=== PATIENT | female | born 1980 | race Hispanic/Latino ===

== ENCOUNTER 2022-05-10 07:22 | Observation (INO) | payer OTHER ==
--- OUTSIDE RECORDS SUMMARY | 2022-05-10 07:30 | XMS REPORT | Continuity of Care Document ---
:1980 Author Organization [facility] t Address [address] [facility] [address] [place] [id number] Care Team Providers Name Role Phone Purnima RUBALCAVA, [facility] Primary Care Physician [phone] Problems This patient has no known problems. Allergies, Adverse Reactions, Alerts This patient has no known allergies or adverse reactions. Medications Ordered Filled Start Stop Current Ordering Indication Dosage Frequency Signature Comments Components Source Medication Medication Date Date Medication? Clinician (SIG) Name Name TAKE 2021-02 No TABLET 2-27 DAILY. 00:00: 00 TAKE 1 2021-02 No TABLET ONCE 2-19 DAILY. 00:00: 00 Vital Signs Vital Name Observation Time Observation Value Comments Source BP Systolic 2022-02-19 09:31:00 191 mm[Hg] BP Diastolic 2022-02-19 09:31:00 129 mm[Hg] Weight Measured 2022-02-19 09:31:00 282.00 pounds Height Measured 2022-02-19 09:31:00 65.00 inches Body Temperature 2022-02-19 09:31:00 98.40 degrees Heart Rate 2022-02-19 09:31:00 89.00 /min Respiratory Rate 2022-02-19 09:31:00 20.00 /min BP Systolic 2022-02-11 16:05:00 206 mm[Hg] BP Diastolic 2022-02-11 16:05:00 124 mm[Hg] Weight Measured 2022-02-11 16:05:00 279.20 pounds Height Measured 2022-02-11 16:05:00 65.00 inches Body Temperature 2022-02-11 16:05:00 97.60 degrees Heart Rate 2022-02-11 16:05:00 88.00 /min Respiratory Rate 2022-02-11 16:05:00 18.00 /min BP Systolic 2022-02-03 09:00:00 212 mm[Hg] BP Diastolic 2022-02-03 09:00:00 142 mm[Hg] Weight Measured 2022-02-03 09:00:00 283.00 pounds Height Measured 2022-02-03 09:00:00 65.00 inches Body Temperature 2022-02-03 09:00:00 98.60 degrees Heart Rate 2022-02-03 09:00:00 83.00 /min Respiratory Rate 2022-02-03 09:00:00 18.00 /min Procedures This patient has no known procedures. Plan of Care Planned Activity Planned Date Details Comments Source Goal Plan of Care Note [code = 21759-9] Goal Plan of Care Note [code = 79784-3] Goal Plan of Care Note [code = 10442-1] Goal Plan of Care Note [code = 83818-0] Goal Plan of Care Note [code = 82982-9] Goal Plan of Care Note [code = 48418-8] Goal Plan of Care Note [code = 16986-5] Goal Plan of Care Note [code = 19329-3] Encounters Start End Encounter Admission Attending Care Care Encounter Source Date/Time Date/Time Type Type Clinicians Facility Department ID 2022-03-27 2022-03-27 Outpatient [facility] [id number] [place] 14:32:57 14:32:57 [id number] F [place] 2022-02-27 2022-02-27 Outpatient [facility] [id number] [place] 14:37:06 14:37:06 [id number] F [place] 2022-02-19 2022-02-19 Outpatient [facility] [id number] [place] 09:22:21 09:22:21 [id number] F [place] 2022-02-19 2022-02-19 Outpatient [id number] 00:00:00 00:00:00 Visit [id number] Results Test Description Test Time Test Comments Results Result Comments Source [facility], THIRD GENERATION 2022-02-04 06:22:53 Test Item Value Reference Range Interpretation Comme nts TSH, THIRD GENERATION (test code = 2821) 4.580 UIU/ML 0.400-4.100 H COMPREHENSIVE METABOLIC [id number] 03:59:34 Test Item Value Reference Range Interpretation Comments GLUCOSE (test code = 100 MG/DL 70-99 H 2216) BUN (test code = 8 MG/DL 6-20 2207) CREATININE (test 0.58 MG/DL 0.60-1.30 L code = 2214) eGFR (2020 CKD-EPI) 118 >60 (test code = 33159) ML/MIN/1.73 CALC BUN/CREAT (test 14 RATIO 6-28 code = 2235) SODIUM (test code = 140 MEQ/L 862-043 5968) POTASSIUM (test code 4.2 MEQ/L 3.5-5.4 = 2227) CHLORIDE (test code 104 MEQ/L 95-107 = 2214) CARBON DIOXIDE (test 26 MEQ/L 19-31 code = 220) CALCIUM (test code = 9.1 MG/DL 8.5-10.5 2208) PROTEIN, TOTAL (test 7.4 G/DL 6.1-8.3 code = 222) ALBUMIN (test code = 4.3 G/DL 3.5-5.2 2200) CALC GLOBULIN (test 3.1 G/DL 1.9-3.7 code = 2240) CALC A/G RATIO (test 1.4 RATIO 1.0-2.6 code = 2234) BILIRUBIN, TOTAL 0.4 MG/DL See_Comment [Automated message] (test code = 220) The syste m which generated this result transmit eulalia reference range : <=1.2. The refe rence range was not u sed to interpret th is result as normal/abnormal . ALKALINE PHOSPHATASE 106 U/L 40-112 (test code = 2204) AST (test code = 23 U/L 9-40 2217) ALT (test code = 28 U/L 5-40 2218) LIPID [id number] 03:59:34 Test Item Value Reference Range Interpretation Comments CHOLESTEROL (test 153 MG/DL <200 code = 2210) TRIGLYCERIDES (test 156 MG/DL <150 H code = 2232) HDL CHOLESTEROL (test 54 MG/DL >39 code = 2220) CALC LDL CHOL (test 76 MG/DL <100 NOTE: C ALCULATED LDL code = 2237) IS BASED ON STEFANIE-ASENCIO METHOD WHICHINCLUDES ADJUSTABLE TRIGLYCERIDE:VL DL CHOLESTEROL RAT IO.THIS FACTOR VARIES B Y MEASURED TRIGLY CERIDE AND NON-HDLCHOL ESTEROL CONCENTRATIONS WITH INCREASED CALCU LATED LDL SEENIN HIGH ER TRIGLYCERIDE OR LOWER NON-HDL SPECIME NS. FOR MOREINFORMATION , SEE CLIENT ANNOUNCE MENT AT [email or web address] RISK RATIO LDL/HDL 1.41 RATIO <3.22 (test code = 2238) HEMOGLOBIN [id number] 02:35:03 Test Item Value Reference Range Interpretation Comments HEMOGLOBIN A1c (test 6.1 % 4.2-5.6 H UNLESS OTHERWISE code = 86685) INDICATED, ALL TESTING PERFORMED [facility] [employer]. [address] [place] [id number] [place] [address] DIRECTOR: OLI CARDONA M.D. CLIA NUMBER [id number] CAP ACCREDITATION N O. [id number] CBC W/AUTO DIFF WITH [id number] 02:15:17 Test Item Value Reference Range Interpretation Comments WBC (test code = 6.7 K/UL 3.5-11.0 1001) RBC (test code = 5.66 M/UL 3.80-5.40 H 1002) HEMOGLOBIN (test code 12.0 G/DL 11.5-15.5 = 1003) HEMATOCRIT (test code 41.2 % 34.0-45.0 = 1004) MCV (test code = 72.8 fL 80.0-99.0 L 1005) MCH (test code = 21.2 PG 25.0-33.0 L 1006) MCHC (test code = 29.1 G/DL 31.0-36.0 L 1007) RDW (test code = 18.3 % 11.5-15.0 H 1038) NEUTROPHILS (test 60.6 % code = 1008) LYMPHOCYTES (test 26.3 % code = 1010) MONOCYTES (test code 9.9 % = 1011) EOSINOPHILS (test 2.5 % code = 1012) BASOPHILS (test code 0.3 % = 1013) IMMATURE GRANULOCYTES 0.4 % (test code = 1036) NUCLEATED RBCS (test 0.0 /100 WBC'S See_Comment [Aut omated code = 1065) message] The sy stem which generated this result transmitted reference range : 0.0. The refere nce range was not u sed to interpret th is result as normal/abnormal . PLATELET COUNT (test 357 K/UL 130-400 code = 1015) ABSOLUTE NEUTROPHILS 4.08 K/UL 1.50-7.50 (test code = 1066) ABSOLUTE LYMPHOCYTES 1.77 K/UL 1.00-4.00 (test code = 1067) ABSOLUTE MONOCYTES 0.67 K/UL 0.20-1.00 (test code = 1068) ABSOLUTE EOSINOPHILS 0.17 K/UL 0.00-0.50 (test code = 1040) ABSOLUTE BASOPHILS 0.02 K/UL 0.00-0.20 (test code = 1069) ABS IMMATURE 0.03 K/UL 0.00-0.10 GRANULOCYTES (test code = 1020) ABS NUCLEATED RBCS 0.00 K/UL 0.00-0.11 (test code = 15706) LIPID [id number] 00:00:00 Test Item Value Reference Range Interpretation Comments CHOLESTEROL (test code = 2210) 153 MG/DL TRIGLYCERIDES (test code = 2232) 156 MG/DL HDL CHOLESTEROL (test code = 2220) 54 MG/DL CALC LDL CHOL (test code = 2237) 76 MG/DL RISK RATIO LDL/HDL (test code = 1.41 RATIO 2238) LIPID [id number] 00:00:00 Test Item Value Reference Range Interpretation Comments CHOLESTEROL (test code = 2210) 153 MG/DL TRIGLYCERIDES (test code = 2232) 156 MG/DL HDL CHOLESTEROL (test code = 2220) 54 MG/DL CALC LDL CHOL (test code = 2237) 76 MG/DL RISK RATIO LDL/HDL (test code = 1.41 RATIO 2238) TSH, THIRD [id number] 00:00:00 Test Item Value Reference Range Interpretation Comments TSH, THIRD GENERATION (test code 4.580 UIU/ML = 2821) TSH, THIRD [id number] 00:00:00 Test Item Value Reference Range Interpretation Comments TSH, THIRD GENERATION (test code 4.580 UIU/ML = 2821) TSH, THIRD [id number] 00:00:00 Test Item Value Reference Range Interpretation Comments TSH, THIRD GENERATION (test code 4.580 UIU/ML = 2821) HEMOGLOBIN [id number] 00:00:00 Test Item Value Reference Range Interpretation Comments HEMOGLOBIN A1c (test code = 11201) 6.1 % HEMOGLOBIN [id number] 00:00:00 Test Item Value Reference Range Interpretation Comments HEMOGLOBIN A1c (test code = 63736) 6.1 % HEMOGLOBIN [id number] 00:00:00 Test Item Value Reference Range Interpretation Comments HEMOGLOBIN A1c (test code = 43789) 6.1 % CBC W/AUTO [id number] 00:00:00 Test Item Value Reference Range Interpretation Comments WBC (test code = 1001) 6.7 K/UL RBC (test code = 1002) 5.66 M/UL HEMOGLOBIN (test code = 1003) 12.0 G/DL HEMATOCRIT (test code = 1004) 41.2 % MCV (test code = 1005) 72.8 fL MCH (test code = 1006) 21.2 PG MCHC (test code = 1007) 29.1 G/DL RDW (test code = 1038) 18.3 % NEUTROPHILS (test code = 1008) 60.6 % LYMPHOCYTES (test code = 1010) 26.3 % MONOCYTES (test code = 1011) 9.9 % EOSINOPHILS (test code = 1012) 2.5 % BASOPHILS (test code = 1013) 0.3 % IMMATURE GRANULOCYTES (test 0.4 % code = 1036) NUCLEATED RBCS (test code = 0.0 /100WBC'S 1065) PLATELET COUNT (test code = 357 K/UL 1015) ABSOLUTE NEUTROPHILS (test code 4.08 K/UL = 1066) ABSOLUTE LYMPHOCYTES (test code 1.77 K/UL = 1067) ABSOLUTE MONOCYTES (test code = 0.67 K/UL 1068) ABSOLUTE EOSINOPHILS (test code 0.17 K/UL = 1040) ABSOLUTE BASOPHILS (test code = 0.02 K/UL 1069) ABS IMMATURE GRANULOCYTES (test 0.03 K/UL code = 1020) ABS NUCLEATED RBCS (test code = 0.00 K/UL 10643) CBC W/AUTO [id number] 00:00:00 Test Item Value Reference Range Interpretation Comments WBC (test code = 1001) 6.7 K/UL RBC (test code = 1002) 5.66 M/UL HEMOGLOBIN (test code = 1003) 12.0 G/DL HEMATOCRIT (test code = 1004) 41.2 % MCV (test code = 1005) 72.8 fL MCH (test code = 1006) 21.2 PG MCHC (test code = 1007) 29.1 G/DL RDW (test code = 1038) 18.3 % NEUTROPHILS (test code = 1008) 60.6 % LYMPHOCYTES (test code = 1010) 26.3 % MONOCYTES (test code = 1011) 9.9 % EOSINOPHILS (test code = 1012) 2.5 % BASOPHILS (test code = 1013) 0.3 % IMMATURE GRANULOCYTES (test 0.4 % code = 1036) NUCLEATED RBCS (test code = 0.0 /100WBC'S 1065) PLATELET COUNT (test code = 357 K/UL 1015) ABSOLUTE NEUTROPHILS (test code 4.08 K/UL = 1066) ABSOLUTE LYMPHOCYTES (test code 1.77 K/UL = 1067) ABSOLUTE MONOCYTES (test code = 0.67 K/UL 1068) ABSOLUTE EOSINOPHILS (test code 0.17 K/UL = 1040) ABSOLUTE BASOPHILS (test code = 0.02 K/UL 1069) ABS IMMATURE GRANULOCYTES (test 0.03 K/UL code = 1020) ABS NUCLEATED RBCS (test code = 0.00 K/UL 15279) CBC W/AUTO [id number] 00:00:00 Test Item Value Reference Range Interpretation Comments WBC (test code = 1001) 6.7 K/UL RBC (test code = 1002) 5.66 M/UL HEMOGLOBIN (test code = 1003) 12.0 G/DL HEMATOCRIT (test code = 1004) 41.2 % MCV (test code = 1005) 72.8 fL MCH (test code = 1006) 21.2 PG MCHC (test code = 1007) 29.1 G/DL RDW (test code = 1038) 18.3 % NEUTROPHILS (test code = 1008) 60.6 % LYMPHOCYTES (test code = 1010) 26.3 % MONOCYTES (test code = 1011) 9.9 % EOSINOPHILS (test code = 1012) 2.5 % BASOPHILS (test code = 1013) 0.3 % IMMATURE GRANULOCYTES (test 0.4 % code = 1036) NUCLEATED RBCS (test code = 0.0 /100WBC'S 1065) PLATELET COUNT (test code = 357 K/UL 1015) ABSOLUTE NEUTROPHILS (test code 4.08 K/UL = 1066) ABSOLUTE LYMPHOCYTES (test code 1.77 K/UL = 1067) ABSOLUTE MONOCYTES (test code = 0.67 K/UL 1068) ABSOLUTE EOSINOPHILS (test code 0.17 K/UL = 1040) ABSOLUTE BASOPHILS (test code = 0.02 K/UL 1069) ABS IMMATURE GRANULOCYTES (test 0.03 K/UL code = 1020) ABS NUCLEATED RBCS (test code = 0.00 K/UL 09900) COMPREHENSIVE METABOLIC [id number] 00:00:00 Test Item Value Reference Range Interpretation Comments GLUCOSE (test code = 2217) 100 MG/DL BUN (test code = 2208) 8 MG/DL CREATININE (test code = 2214) 0.58 MG/DL eGFR (2020 CKD-EPI) (test 118 ML/MIN/1.73 code = 51570) CALC BUN/CREAT (test code = 14 RATIO 2235) SODIUM (test code = 2231) 140 MEQ/L POTASSIUM (test code = 2228) 4.2 MEQ/L CHLORIDE (test code = 2215) 104 MEQ/L CARBON DIOXIDE (test code = 26 MEQ/L 2206) CALCIUM (test code = 2209) 9.1 MG/DL PROTEIN, TOTAL (test code = 7.4 G/DL 222) ALBUMIN (test code = 2201) 4.3 G/DL CALC GLOBULIN (test code = 3.1 G/DL 2240) CALC A/G RATIO (test code = 1.4 RATIO 2234) BILIRUBIN, TOTAL (test code = 0.4 MG/DL 2207) ALKALINE PHOSPHATASE (test 106 U/L code = 2204) AST (test code = 2218) 23 U/L ALT (test code = 2219) 28 U/L COMPREHENSIVE METABOLIC [id number] 00:00:00 Test Item Value Reference Range Interpretation Comments GLUCOSE (test code = 2217) 100 MG/DL BUN (test code = 2208) 8 MG/DL CREATININE (test code = 2214) 0.58 MG/DL eGFR (2020 CKD-EPI) (test 118 ML/MIN/1.73 code = 67415) CALC BUN/CREAT (test code = 14 RATIO 2235) SODIUM (test code = 2231) 140 MEQ/L POTASSIUM (test code = 2228) 4.2 MEQ/L CHLORIDE (test code = 2215) 104 MEQ/L CARBON DIOXIDE (test code = 26 MEQ/L 2205) CALCIUM (test code = 2208) 9.1 MG/DL PROTEIN, TOTAL (test code = 7.4 G/DL 2228) ALBUMIN (test code = 220) 4.3 G/DL CALC GLOBULIN (test code = 3.1 G/DL 2239) CALC A/G RATIO (test code = 1.4 RATIO 2233) BILIRUBIN, TOTAL (test code = 0.4 MG/DL 2206) ALKALINE PHOSPHATASE (test 106 U/L code = 2203) AST (test code = 2218) 23 U/L ALT (test code = 221) 28 U/L
[2022-05-10] MEDS ORDERED: NA CHLORIDE 0.9% 1,000 ML ONE ×3 (08:10→09:09)
[2022-05-10 08:13] LABS: Absolute Lymphocytes (CBC) 1.3 K/uL (0.7-4.9); Hematocrit 38.5 % (36.0-45.0); Lymphocytes % 14.6 % (15.3-44.8); MCV 82.7 fL (80-100); MPV 8.2 fL (7.6-11.3); RBC Red Blood Cell Count 4.66 M/uL (3.86-4.86)
--- NOTE | 2022-05-10 08:18 | RAD REPORT ---
EXAM DESCRIPTION: RAD - Chest Single View - 05/10/2022 8:11 am CLINICAL HISTORY: CHEST PAIN COMPARISON: No comparisons FINDINGS: Lines: None. Lungs: No evidence of edema or pneumonia. Pleural: No significant pleural effusions or pneumothorax. Cardiac: The heart size is within normal limits. Mediastinum: Within normal limits. Bones: No acute fractures. Other: None IMPRESSION: No acute cardiopulmonary disease.
[2022-05-10 08:25] LABS: Arterial Blood Carboxyhemoglob 1.3 % (0-1.5); Blood Gas Oxyhemoglobin 92.5 % (94-97); Blood O2 Saturation 94.9 % (92-98.5)
[2022-05-10 08:38] LABS: Albumin 3.8 g/dL (3.4-5.0); Bilirubin Direct 0.1 mg/dL (0-0.2); Bilirubin Total 0.5 mg/dL (0.2-1.0); Magnesium 2.1 mg/dL (1.6-2.4); Potassium 4.2 mEq/L (3.5-5.1); Protein, Total 8.3 g/dL (6.4-8.2); Troponin High Sensitivity 46.2 pg/mL (<58.9)
[2022-05-10 08:43] LABS: Specific Gravity 1.027 (1.005-1.030); Urine Bacteria None Seen /HPF (<20); Urine Bilirubin NEGATIVE (Negative); Urine Blood Negative (Negative); Urine Clarity Clear (Clear); Urine Color Colorless (Yellow); Urine Glucose 4+ (Over) (Negative); Urine Mucus Slight /HPF (None Seen); Urine Protein NEGATIVE (Negative); Urine RBC <5 /HPF (None Seen); Urine Urobilinogen Normal (Normal)
--- NOTE | 2022-05-10 08:59 | ER ---
Nurse's Notes [facility] Name: Kerry Kelly Age: 42 yrs Sex: Female : 1980 Arrival Date: 05/10/2022 Time: 07:28 Bed 5 Private MD: Diagnosis: Diabetes mellitus due to underlying condition with hyperosmolarity without nonketotic hyperglycemic-hyperosmolar coma ([facility]);Obesity, unspecified;Hyperglycemia, unspecified;Other specified diabetes mellitus with hyperosmolarity without nonketotic hyperglycemic-hyperosmolar coma ([facility]) Presentation: 05/10 07:41 Chief complaint: Patient states: "Feeling weird" for a few days, nausea, dizziness, ph blurred vision, and increased thirst. Denies fever, chills. Coronavirus screen: Vaccine status: Patient reports being unvaccinated. Ebola Screen: No symptoms or risks identified at this time. Initial Sepsis Screen: Does the patient meet any 2 criteria? No. Patient's initial sepsis screen is negative. Does the patient have a suspected source of infection? No. Patient's initial sepsis screen is negative. Risk Assessment: Do you want to hurt yourself or someone else? Patient reports no desire to harm self or others. Onset of symptoms was May 10, 2022. 07:41 Method Of Arrival: Ambulatory ph 07:41 Acuity: MARIAN 3 ph Historical: - Allergies: 07:44 No Known Allergies; ph - PMHx: 07:44 Hypertensive disorder; ph - PSHx: 07:44 section; Cholecystectomy; ph - Immunization history:: Adult Immunizations unknown. - Social history:: Smoking status: Patient denies any tobacco usage or history of. Screenin:45 [facility] ED Fall Risk Assessment (Adult) History of falling in the last 3 months, ph including since admission No falls in past 3 months (0 pts) Confusion or Disorientation No (0 pts) Intoxicated or Sedated No (0 pts) Impaired Gait No (0 pts) Mobility Assist Device Used No (0 pt) Altered Elimination No (0 pt) Score/Fall Risk Level 0 - 2 = Low Risk Oriented to surroundings, Maintained a safe environment, Hourly rounding (assess needs \\T\\ fall precautionary measures) done. Abuse screen: Denies threats or abuse. Denies injuries from another. Nutritional screening: No deficits noted. Tuberculosis screening: No symptoms or risk factors identified. Assessment: 07:47 General: Appears comfortable, Behavior is calm, cooperative, appropriate for age, sg5 Reports frequent urination for a couple days, dizziness and blurred vision, increased thirst, and reports urine looks like water. Pain: Denies pain. Neuro: Level of Consciousness is awake, alert, obeys commands, Oriented to person, place, time, situation, Appropriate for age Reports blurred vision dizziness. Cardiovascular: No deficits noted. Capillary refill < 3 seconds. Respiratory: No deficits noted. Airway is patent Trachea midline. GI: No deficits noted. No signs and/or symptoms were reported involving the gastrointestinal system. Abdomen is round. : Reports frequent urination. EENT: No deficits noted. No signs and/or symptoms were reported regarding the EENT system. Derm: No deficits noted. No signs and/or symptoms reported regarding the dermatologic system. Musculoskeletal: No deficits noted. No signs and/or symptoms reported regarding the musculoskeletal system. 08:42 Reassessment: Patient appears in no apparent distress at this time. Patient and/or hb family updated on plan of care and expected duration. Pain level reassessed. Patient is alert, oriented x 3, equal unlabored respirations, skin warm/dry/pink. 09:56 Reassessment: Patient appears in no apparent distress at this time. Patient and/or hb family updated on plan of care and expected duration. Pain level reassessed. Patient is alert, oriented x 3, equal unlabored respirations, skin warm/dry/pink. Vital Signs: 07:41 BP 147 / 100; Pulse 112; Resp 18; Temp 98.8; Pulse Ox 97% on R/A; Weight 127.01 kg; ph Height 5 ft. 5 in. ; 07:45 BP 135 / 93; Pulse 102; Resp 20; Pulse Ox 99% on R/A; vg1 08:42 BP 145 / 80; Pulse 68; Resp 17; Pulse Ox 96% on R/A; hb 09:17 BP 126 / 82; Pulse 96; Resp 18; Pulse Ox 98% on R/A; sg5 09:56 BP 121 / 82; Pulse 91; Resp 19; Pulse Ox 99% on R/A; hb 07:41 Body Mass Index 46.59 (127.01 kg, 165.1 cm) ph ED Course: 07:28 Patient arrived in ED. rg4 07:41 Jocelyn Bond, RN is Primary Nurse. ph 07:44 Triage completed. ph 07:45 Arm band placed on Patient placed in an exam room, on a stretcher. ph 07:45 Patient has correct armband on for positive identification. Bed in low position. Call ph light in reach. Side rails up X 1. 07:57 Vilma Villanueva, RN is Primary Nurse. sg5 08:02 Marvin Kelly MD is Attending Physician. yamila 08:04 Inserted saline lock: 20 gauge in right antecubital area, using aseptic technique. hb Blood collected. 08:13 XRAY Chest (1 view) In Process Unspecified. EDMS 08:55 SARS RAPID Sent. hb 08:57 Sun Gilmore MD is Hospitalizing Provider. yamila 11:00 No provider procedures requiring assistance completed. Patient admitted, IV remains in hb place. Administered Medications: 08:14 Drug: NS 0.9% IV 1000 ml Route: IV; Rate: 1 bolus; Site: right antecubital; hb 09:55 Follow up: Response: No adverse reaction; IV Status: Completed infusion; IV Intake: hb 1000ml 08:25 Drug: NS 0.9% IV 1000 ml Route: IV; Rate: 1 bolus; Site: right antecubital; vg1 09:55 Follow up: Response: No adverse reaction; IV Status: Completed infusion; IV Intake: hb 1000ml 09:12 Drug: Insulin Regular Human IVP 10 units {Co-Signature: vg1 (Anastasiya Montenegro RN).} hb Route: IVP; Site: right antecubital; 09:54 Follow up: Response: No adverse reaction hb 09:12 Drug: Famotidine IVP 20 mg Route: IVP; Site: right antecubital; hb 09:54 Follow up: Response: No adverse reaction hb 09:53 Drug: Insulin Drip - (Insulin Regular Human IVP 100 units, NS 0.9% IV 100 ml) hb {Co-Signature: vg1 (Anastasiya Montenegro RN).} Route: IV; Rate: 6 units/hr; Site: right antecubital; 10:55 Follow up: Rate change 6 units/hr hb 09:54 Drug: NS 0.9% IV 1000 ml Route: IV; Rate: 125 ml/hr; Site: right antecubital; hb 11:22 Drug: Potassium PO Effervescent Tablet 50 mEq Route: PO; hb Medication: 07:46 VIS not applicable for this client. ph Intake: 09:55 IV: 1000ml; Total: 1000ml. hb 09:55 IV: 1000ml; Total: 2000ml. hb Outcome: 08:59 Decision to Hospitalize by Provider. yamila 10:59 Admitted to ER Hold. Please see [facility] for further documentation. hb 10:59 Condition: stable 10:59 Instructed on the need for admit, Demonstrated understanding of instructions. 17:17 Patient left the ED. hb Signatures: Dispatcher [employer] EDMS Marvin Kelly MD MD cha Hall, Patricia RN RN Mee Armas RN RN Xenia Martinez4 Anastasiya Montenegro RN RN vg1 Vilma Villanueva RN RN sg5 Anastasiya Montenegro RN vg1 Corrections: (The following items were deleted from the chart) 08:02 07:40 BP 135 / 93; Pulse 102bpm; Resp 20bpm; Pulse Ox 99% RA; vg1 vg1
--- NOTE | 2022-05-10 08:59 | EDPHYS ---
Physician Documentation [facility] Name: Kerry Kelly Age: 42 yrs Sex: Female : 1980 Arrival Date: 05/10/2022 Time: 07:28 Bed 5 Private MD: Marvin Harding HPI: 05/10 08:52 This 42 yrs old Female presents to ER via Ambulatory with complaints of yamila Blurred Vision, Nausea, Weakness. 08:52 The patient presents to the emergency department with nausea, vomiting, that is yamila intermittent. Onset: The symptoms/episode began/occurred 3 day(s) ago. Possible causes: unknown. The symptoms are aggravated by nothing. The symptoms are alleviated by nothing. Severity of symptoms: At their worst the symptoms were mild moderate in the emergency department the symptoms are unchanged. The patient has not experienced similar symptoms in the past. Historical: - Allergies: 07:44 No Known Allergies; ph - PMHx: 07:44 Hypertensive disorder; ph - PSHx: 07:44 section; Cholecystectomy; ph - Immunization history:: Adult Immunizations unknown. - Social history:: Smoking status: Patient denies any tobacco usage or history of. ROS: 08:53 Constitutional: Negative for fever, chills, and weight loss, Eyes: Negative for injury, yamila pain, redness, and discharge, ENT: Negative for injury, pain, and discharge, Neck: Negative for injury, pain, and swelling, Cardiovascular: Negative for chest pain, palpitations, and edema, Respiratory: Negative for shortness of breath, cough, wheezing, and pleuritic chest pain, Abdomen/GI: Negative for abdominal pain, nausea, vomiting, diarrhea, and constipation, Back: Negative for injury and pain, : Negative for injury, bleeding, discharge, and swelling, MS/Extremity: Negative for injury and deformity, Skin: Negative for injury, rash, and discoloration, Neuro: Negative for headache, weakness, numbness, tingling, and seizure, Psych: Negative for depression, anxiety, suicide ideation, homicidal ideation, and hallucinations, Allergy/Immunology: Negative for hives, rash, and allergies, Hematologic/Lymphatic: Negative for swollen nodes, abnormal bleeding, and unusual bruising. 08:53 Endocrine: Positive for polydipsia, polyuria. Exam: 08:53 Constitutional: This is a well developed, well nourished patient who is awake, alert, yamila and in no acute distress. Head/Face: Normocephalic, atraumatic. Eyes: Pupils equal round and reactive to light, extra-ocular motions intact. Lids and lashes normal. Conjunctiva and sclera are non-icteric and not injected. Cornea within normal limits. Periorbital areas with no swelling, redness, or edema. ENT: Nares patent. No nasal discharge, no septal abnormalities noted. Tympanic membranes are normal and external auditory canals are clear. Oropharynx with no redness, swelling, or masses, exudates, or evidence of obstruction, uvula midline. Mucous membranes moist. Neck: Trachea midline, no thyromegaly or masses palpated, and no cervical lymphadenopathy. Supple, full range of motion without nuchal rigidity, or vertebral point tenderness. No Meningismus. Chest/axilla: Normal chest wall appearance and motion. Nontender with no deformity. No lesions are appreciated. Cardiovascular: Regular rate and rhythm with a normal S1 and S2. No gallops, murmurs, or rubs. Normal PMI, no JVD. No pulse deficits. Respiratory: Lungs have equal breath sounds bilaterally, clear to auscultation and percussion. No rales, rhonchi or wheezes noted. No increased work of breathing, no retractions or nasal flaring. Abdomen/GI: Soft, non-tender, with normal bowel sounds. No distension or tympany. No guarding or rebound. No evidence of tenderness throughout. Back: No spinal tenderness. No costovertebral tenderness. Full range of motion. Skin: Warm, dry with normal turgor. Normal color with no rashes, no lesions, and no evidence of cellulitis. MS/ Extremity: Pulses equal, no cyanosis. Neurovascular intact. Full, normal range of motion. Neuro: Awake and alert, GCS 15, oriented to person, place, time, and situation. Cranial nerves II-XII grossly intact. Motor strength 5/5 in all extremities. Sensory grossly intact. Cerebellar exam normal. Normal gait. Psych: Awake, alert, with orientation to person, place and time. Behavior, mood, and affect are within normal limits. 08:53 ECG was reviewed by the Attending Physician. Vital Signs: 07:41 BP 147 / 100; Pulse 112; Resp 18; Temp 98.8; Pulse Ox 97% on R/A; Weight 127.01 kg; ph Height 5 ft. 5 in. ; 07:45 BP 135 / 93; Pulse 102; Resp 20; Pulse Ox 99% on R/A; vg1 08:42 BP 145 / 80; Pulse 68; Resp 17; Pulse Ox 96% on R/A; hb 09:17 BP 126 / 82; Pulse 96; Resp 18; Pulse Ox 98% on R/A; sg5 09:56 BP 121 / 82; Pulse 91; Resp 19; Pulse Ox 99% on R/A; hb 07:41 Body Mass Index 46.59 (127.01 kg, 165.1 cm) ph MDM: 08:02 Patient medically screened. yamila 08:54 Differential diagnosis: gastritis, pancreatitis, diverticulitis, viral gastroenteritis, yamila gastroenteritis. Data reviewed: vital signs, nurses notes, lab test result(s), EKG, radiologic studies, plain films. Consideration of Admission/Observation Patient was admitted/placed on observation. Escalation of care including admission/observation considered. I considered the following discharge prescriptions or medication management in the emergency department Medications were administered in the Emergency Department. See MAR. Test considered but Not performed: CT: no ct abd and pelvis. Care significantly affected by the following chronic conditions: Hypertension, Obesity. Care significantly affected by the following Social Determinants of Health: Poor access to healthcare and/or lack of insurance. Counseling: I had a detailed discussion with the patient and/or guardian regarding: the historical points, exam findings, and any diagnostic results supporting the discharge/admit diagnosis, the presence of at least one elevated blood pressure reading (>120/80) during this emergency department visit, lab results, radiology results, the need for further work-up and treatment in the hospital. 05/10 07:55 Order name: Basic Metabolic Panel; Complete Time: 08:48 sp4 05/10 07:55 Order name: CBC with Diff; Complete Time: 08:48 sp4 05/10 07:55 Order name: LFT's; Complete Time: 08:48 sp4 05/10 07:55 Order name: Magnesium; Complete Time: 08:48 sp4 05/10 07:55 Order name: NT PRO-BNP; Complete Time: 08:48 sp4 05/10 07:55 Order name: Troponin HS; Complete Time: 08:48 sp4 05/10 07:57 Order name: Glucose, Ancillary Testing; Complete Time: 08:07 [facility] 05/10 08:07 Order name: Lipase [facility] 05/10 08:07 Order name: Urinalysis W/Microscopic; Complete Time: 08:48 [facility] 05/10 08:07 Order name: ABG; Complete Time: 11:10 [facility] 05/10 08:07 Order name: Ketone, Serum [facility] 05/10 08:49 Order name: SARS RAPID; Complete Time: 11:10 [facility] 05/10 09:52 Order name: Basic Metabolic Panel [facility] 05/10 09:52 Order name: Basic Metabolic Panel [facility] 05/10 09:52 Order name: CBC with Automated Diff [facility] 05/10 09:52 Order name: CBC with Automated Diff [facility] 05/10 09:52 Order name: Comprehensive Metabolic Panel [facility] 05/10 09:52 Order name: Comprehensive Metabolic Panel [facility] 05/10 09:52 Order name: Hemoglobin A1c [facility] 05/10 09:52 Order name: Hemoglobin A1c [facility] 05/10 09:52 Order name: Basic Metabolic Panel [facility] 05/10 09:56 Order name: Glucose, Ancillary Testing; Complete Time: 11:10 [facility] 05/10 11:02 Order name: Glucose, Ancillary Testing; Complete Time: 11:10 [facility] 05/10 11:59 Order name: Glucose, Ancillary Testing [facility] 05/10 13:13 Order name: Glucose, Ancillary Testing [facility] 05/10 14:18 Order name: Glucose, Ancillary Testing [facility] 05/10 15:34 Order name: Glucose, Ancillary Testing [facility] 05/10 17:11 Order name: Glucose, Ancillary Testing [facility] 05/10 07:55 Order name: XRAY Chest (1 view); Complete Time: 08:48 [facility] 05/10 07:55 Order name: EKG; Complete Time: 07:56 [facility] 05/10 09:52 Order name: 60g Consistent Carbohydrate (ADA 1800/2000) [facility] 05/10 07:55 Order name: Cardiac monitoring; Complete Time: 08:00 [facility] 05/10 07:55 Order name: EKG - Nurse/Tech; Complete Time: 08:00 [facility] 05/10 07:55 Order name: IV Saline Lock; Complete Time: 08:03 [facility] 05/10 07:55 Order name: Labs collected and sent; Complete Time: 08:03 [facility] 05/10 07:55 Order name: O2 Per Protocol; Complete Time: 08:00 4 05/10 07:55 Order name: O2 Sat Monitoring; Complete Time: 08: [facility] 05/10 08:56 Order name: IV Saline Lock - Large Bore; Complete Time: 09:13 yamila EC:53 Rate is 101 beats/min. Rhythm is regular. QRS [place] is Normal. [place] interval is normal. yamila QRS interval is normal. QT interval is normal. No Q waves. T waves are Normal. No ST changes noted. Clinical impression: NSR w/ Non-specific ST/T Changes and No evidence of ischemia. Interpreted by me. Reviewed by me. Administered Medications: 08:14 Drug: NS 0.9% IV 1000 ml Route: IV; Rate: 1 bolus; Site: right antecubital; hb 09:55 Follow up: Response: No adverse reaction; IV Status: Completed infusion; IV Intake: hb 1000ml 08:25 Drug: NS 0.9% IV 1000 ml Route: IV; Rate: 1 bolus; Site: right antecubital; vg1 09:55 Follow up: Response: No adverse reaction; IV Status: Completed infusion; IV Intake: hb 1000ml 09:12 Drug: Insulin Regular Human IVP 10 units {Co-Signature: vg1 (Anastasiya Montenegro RN).} hb Route: IVP; Site: right antecubital; 09:54 Follow up: Response: No adverse reaction hb 09:12 Drug: Famotidine IVP 20 mg Route: IVP; Site: right antecubital; hb 09:54 Follow up: Response: No adverse reaction hb 09:53 Drug: Insulin Drip - (Insulin Regular Human IVP 100 units, NS 0.9% IV 100 ml) hb {Co-Signature: vg1 (Anastasiya Montenegro RN).} Route: IV; Rate: 6 units/hr; Site: right antecubital; 10:55 Follow up: Rate change 6 units/hr hb 09:54 Drug: NS 0.9% IV 1000 ml Route: IV; Rate: 125 ml/hr; Site: right antecubital; hb 11:22 Drug: Potassium PO Effervescent Tablet 50 mEq Route: PO; hb Disposition Summary: 05/10/22 08:59 Hospitalization Ordered Hospitalization Status: Inpatient Admission yamila Provider: Gilmore, Mohammad yamila Condition: Stable yamila Problem: new yamila Symptoms: have improved yamila Bed/Room Type: Standard yamila Location: Telemetry/MedSurg (Inpatient)(05/10/22 16:34) eb Room Assignment: 204(05/10/22 16:35) dw Diagnosis - Diabetes mellitus due to underlying condition with hyperosmolarity without yamila nonketotic hyperglycemic-hyperosmolar coma ([facility]) - Obesity, unspecified yamila - Hyperglycemia, unspecified yamila - Other specified diabetes mellitus with hyperosmolarity without nonketotic yamila hyperglycemic-hyperosmolar coma ([facility]) Forms: - Medication Reconciliation Form yamila - SBAR form yamila Critical care time excluding procedures: 08:55 Critical care time: Bedside Care: 20 minutes, Consultation: 10 minutes, Family yamila Intervention: 5 minutes. Total time: 35 minutes Signatures: Dispatcher [employer] Jessica Camejo RN RN dw Anderson, Corey, MD MD cha Hall, Patricia RN RN Mee Pimentel RN RN Chante Holt Victoria, RN RN vg1 Dixon Victor MD MD sp4 Anastasiya Montenegro RN vg1 Corrections: (The following items were deleted from the chart) 14:54 08:59 Intensive Care Unit yamila dw 14:54 08:59 yamila dw 15:15 14:54 dw dw 15:17 14:54 Telemetry/MedSurg (Inpatient) dw dw 15:17 15:15 204 dw dw 16:34 15:17 Intensive Care Unit dw eb 16:34 15:17 dw eb 16:35 16:34 204 eb dw
[2022-05-10] MEDS ORDERED: INSULIN -REGULAR HUMAN 50 UNIT/0.5 ML ML ONE ×2 (09:08→17:12)
[2022-05-10] MEDS ORDERED: FAMOTIDINE 20 MG/2 ML VIAL IV ONE (09:09)
[2022-05-10 09:21] LABS: SARS-CoV-2 Antigen Rapid Res Negative (Negative)
[2022-05-10] MEDS ORDERED: GLUCAGON 1 MG/VIAL IM PRN ×2 (09:45→14:47)
[2022-05-10] MEDS ORDERED: ACETAMINOPHEN 500 MG TAB PO PRN (09:45)
[2022-05-10] MEDS ORDERED: INSULIN -REGULAR HUMAN 100 UNIT in NA CHLORIDE 0.9% 100 ML IV SCH ×2 (09:45→10:00)
[2022-05-10] MEDS ORDERED: MORPHINE 2 MG/ML SYR IV PRN (09:45)
[2022-05-10] MEDS ORDERED: D50W 25 GM/50 ML SYRINGE IV PRN ×2 (09:45→14:47)
[2022-05-10] MEDS ORDERED: ONDANSETRON 4 MG/2 ML VIAL IV PRN (09:45)
[2022-05-10] MEDS: NA CHLORIDE 0.9% 1,000 ML IV SCH ×2 (10:00→18:23)
[2022-05-10 11:06] VITALS: BMI 46.5
[2022-05-10] MEDS ORDERED: POTASSIUM 25 MEQ EFFERV TAB ONE (11:22)
[2022-05-10] MEDS: INSULIN -REGULAR HUMAN 50 UNIT/0.5 ML ML SQ SCH ×3 (11:30→20:02)
[2022-05-10 12:15] LABS: Potassium 3.9 mEq/L (3.5-5.1)
[2022-05-10 12:29] LABS: Lipase 139 U/L (13-75)
[2022-05-10] MEDS ORDERED: INSULIN 70/30 100 UNITS/ML SQ SCH (14:47)
[2022-05-10] MEDS ORDERED: INSULIN 70/30 100 UNITS/ML SQ ONE (16:00)
[2022-05-10] MEDS ORDERED: INSULIN GLARGINE 100 UNIT/ML SQ SCH (20:00)
--- NOTE | 2022-05-10 21:20 | P.HP ---
Certification for Inpatient Patient admitted to: Observation With expected LOS: <2 Midnights Patient will require the following post-hospital care: None Practitioner: I am a practitioner with admitting privileges, knowledge of patient current condition, hospital course, and medical plan of care. Services: Services provided to patient in accordance with Admission requirements found in Title 42 Section 412.3 of the Code of Federal Regulations Patient History Date of Service: 05/10/22 Reason for admission: Hyperglycemia History of Present Illness: Patient is very pleasant 42-year-old female came to the hospital with hyperglycemia. She states she has been drinking a lot of water lately. She is also been drinking a lot of soda. She has been very thirsty and she is also been urinating quite a bit. She was not really sure why this was going on and because it became excessiveShe decided to come into the emergency room for further evaluation. In the emergency room she was found to have blood sugar greater than 900.She was started on insulin drip as well as aggressive IV hydration. She was not acidotic. She had hyperosmolar nonketotic syndrome. She was admitted for further observation. She does not have a history of diabetes. We will go ahead and do some diabetic education as well as teaching her how to check her blood sugars and how to give herself insulin. She will probably need to be on oral agents going forward. At this time patient will be admitted to the hospital for further evaluation. Allergies No Known Allergies Allergy (Unverified 05/10/22 11:00) Home Medications: Amlodipine Besylate 1 tab PO DAILY 05/10/22 Chlorthalidone 1 tab PO DAILY 05/10/22 Lisinopril [Zestril] 1 tab PO DAILY 05/10/22 Spironolactone 1 tab PO DAILY 05/10/22 - Past Medical/Surgical History -: HTN -: Section -: Cholecystectomy - Family History Father Family History: Reviewed- Non-Contributory - Social History Smoking Status: Never smoker Alcohol use: No CD- Drugs: No Place of Residence: Home Review of Systems 10-point ROS is otherwise unremarkable Physical Examination - Vital Signs Temperature: 98.8 F Blood Pressure: 126/88 Pulse: 87 Respirations: 14 Pulse Ox (%): 100 - Physical Exam General: Alert, In no apparent distress, Oriented x3 HEENT: Atraumatic, PERRLA, Mucous membr. moist/pink, EOMI, Sclerae nonicteric Neck: Supple, 2+ carotid pulse no bruit, No LAD, Without JVD or thyroid abnormality Respiratory: Clear to auscultation bilaterally, Normal air movement Cardiovascular: Regular rate/rhythm, Normal S1 S2, No murmurs Gastrointestinal: Normal bowel sounds, Soft and benign, Non-distended, No tenderness Musculoskeletal: No clubbing, No swelling, No tenderness Integumentary: No rashes Neurological: Normal gait, Normal speech, Normal strength at 5/5 x4 extr, Normal tone, Sensation intact, Cranial nerves 3-12 intact, Normal affect Lymphatics: No axilla or inguinal lymphadenopathy - Studies Laboratory Data (last 24 hrs) 05/10/22 08:01: WBC 9.00, Hgb 12.4, Hct 38.5, Plt Count 364 05/10/22 08:01: Sodium 120 L, Potassium 4.2, BUN 27 H, Creatinine 1.47 H, Glucose 919 H*, Magnesium 2.1, Total Bilirubin 0.5, AST 22, ALT 46, Alkaline Phosphatase 107 Assessment & Plan - Problems (Diagnosis) (1) Diabetic hyperosmolar non-ketotic state Current Visit: Yes Status: Acute - Plan Plan: 1. IV fluids 2. Insulin 3. Diabetic education 4. Oral hypoglycemics 5. GI/DVT prophylaxis Discharge Plan: Home Plan to discharge in: Greater than 2 days - Advance Directives Does patient have a Living Will: No Does patient have a Durable POA for Healthcare: No - Code Status/Comfort Care Code Status Assessed: Yes Code Status: Full Code Critical Care: No Time Spent Managing PTS Care (In Minutes): 45
[2022-05-10] MEDS ORDERED: INSULIN -REGULAR HUMAN 50 UNIT/0.5 ML ML IV ONE (22:57)
[2022-05-11] MEDS: NA CHLORIDE 0.9% 1,000 ML IV SCH ×3 (02:07→10:00)
[2022-05-11 05:51] LABS: Absolute Lymphocytes (CBC) 2.4 K/uL (0.7-4.9); Hematocrit 32.2 % (36.0-45.0); Lymphocytes % 28.9 % (15.3-44.8); MCV 79.8 fL (80-100); MPV 7.8 fL (7.6-11.3); RBC Red Blood Cell Count 4.03 M/uL (3.86-4.86)
[2022-05-11 06:08] LABS: Albumin 2.8 g/dL (3.4-5.0); Bilirubin Total 0.4 mg/dL (0.2-1.0); Potassium 3.4 mEq/L (3.5-5.1)
[2022-05-11] MEDS: INSULIN -REGULAR HUMAN 50 UNIT/0.5 ML ML SQ SCH ×2 (08:20→12:44)
[2022-05-11 11:11] VITALS: O2SAT 98
[2022-05-11 12:15] VITALS: BP 134/82; TEMP 97.8
--- NOTE | 2022-05-11 13:42 | P.DS ---
Discharge Date: 05/11/22 Disposition: ROUTINE DISCHARGE Discharge Condition: GOOD Reason for Admission: Hyperglycemia - Problems (1) Diabetic hyperosmolar non-ketotic state Current Visit: Yes Status: Acute Brief History of Present Illness: Patient is very pleasant 42-year-old female came to the hospital with hyperglycemia. She states she has been drinking a lot of water lately. She is also been drinking a lot of soda. She has been very thirsty and she is also been urinating quite a bit. She was not really sure why this was going on and because it became excessiveShe decided to come into the emergency room for further evaluation. In the emergency room she was found to have blood sugar greater than 900.She was started on insulin drip as well as aggressive IV hydrat ion. She was not acidotic. She had hyperosmolar nonketotic syndrome. She was admitted for further observation. She does not have a history of diabetes. We will go ahead and do some diabetic education as well as teaching her how to check her blood sugars and how to give herself insulin. She will probably need to be on oral agents going forward. At this time patient will be admitted to the hospital for further evaluation. Vital Signs/Physical Exam: Temp Pulse Resp BP Pulse Ox 97.8 F 80 17 134/82 100 05/11/22 12:00 05/11/22 12:00 05/11/22 12:00 05/11/22 12:00 05/11/22 12:00 Laboratory Data at Discharge: WBC 8.30 thou/uL (4.3-10.9) 05/11/22 05:30 Hgb 10.5 g/dL (12.0-15.0) L D 05/11/22 05:30 Hct 32.2 % (36.0-45.0) L 05/11/22 05:30 Plt Count 291 thou/uL (152-406) 05/11/22 05:30 Sodium 135 mEq/L (136-145) L 05/11/22 05:30 Potassium 3.4 mEq/L (3.5-5.1) L 05/11/22 05:30 BUN 16 mg/dL (7-18) 05/11/22 05:30 Creatinine 0.72 mg/dL (0.55-1.02) 05/11/22 05:30 Glucose 262 mg/dL (74-106) H 05/11/22 05:30 Magnesium 2.1 mg/dL (1.6-2.4) 05/10/22 08:01 Total Bilirubin 0.4 mg/dL (0.2-1.0) 05/11/22 05:30 AST 25 U/L (15-37) 05/11/22 05:30 ALT 34 U/L (13-56) 05/11/22 05:30 Alkaline Phosphatase 76 U/L (45-117) D 05/11/22 05:30 Lipase 139 U/L (13-75) H 05/10/22 11:48 Home Medications: Amlodipine Besylate 1 tab PO DAILY 05/10/22 Lisinopril [Zestril] 1 tab PO DAILY 05/10/22 Insulin Glargine,Hum.rec.anlog [Semglee] 20 unit SQ 1999 #2 vial 05/11/22 Metformin HCl [Glucophage*] 500 mg PO BIDWM #60 tab 05/11/22 Semaglutide [Ozempic] 0.25 mg SQ DAILY #2 jessica 05/11/22 New Medications: Metformin HCl [Glucophage*] 500 mg PO BIDWM #60 tab Semaglutide [Ozempic] 0.25 mg SQ DAILY #2 jessica Insulin Glargine,Hum.rec.anlog [Semglee] 20 unit SQ 1999 #2 vial Physician Discharge Instructions: -DC IV and DC home -Follow-up with PCP in 1 to 2 weeks -Please call Dr. Gilmore at [phone] if any questions regarding hospital stay -Please call nursing station at [phone] if any nursing or medication questions -Return to the emergency room if symptoms worsen Diet: ADA Activity: Fall precautions Followup: NONE,NONE [Primary Care Provider] -
[2022-05-11] MEDS ORDERED: D10W 125 ML IV PRN (14:07)
--- NOTE | 2022-05-12 12:31 | EKG ---
Test Date: 2022-05-10 Test Time: 08:00:53 Blood Bank Business Manager: EBONY MEASUREMENT RESULTS: Intervals: Rate: 101 CO: 164 QRSD: 94 QT: 374 QTc: 484 [place]: P: 32 CO: 164 QRS: -33 T: 58 INTERPRETIVE STATEMENTS: Sinus tachycardia Possible Left atrial enlargement Left axis deviation Left ventricular hypertrophy Abnormal ECG No previous ECG available for comparison Electronically Signed On 05-12-22 12:27:14 CDT by Daniel Ojeda
== END 2022-05-11 15:36 | disposition home or self-care (01) ==
LOC: ER 07:22 → ERHOLD 09:45 → 2ND 17:06
PROVIDERS: ADMIT Hospitalist; ATTEND Hospitalist
DX: E72.51 Non-ketotic hyperglycinemia (principal); E11.65 Type 2 diabetes mellitus with hyperglycemia; E11.00 Type 2 diabetes mellitus with hyperosmolarity without nonketotic hyperglycemic-hyperosmolar coma (NKHHC); E66.9 Obesity, unspecified; Z68.42 Body mass index [BMI] 45.0-49.9, adult; Z20.822 Contact with and (suspected) exposure to COVID-19
CPT/HCPCS: 96361; 93005; 85025 ×2; 81001; 80048 ×2; 36415; 82010; 83735; 82947 ×12; 80076; 83036; 84484; 83690; 80053; 83880; 71045; 82805; 96375; 96374; 99285; 87811; J1815 ×7; J2270; J2405; J7030 ×6; G0378 ×4